=== PATIENT | female | born 1985 | race Caucasian/White ===

== ENCOUNTER 2016-10-19 14:21 | Emergency (ER) | payer SELFPAY ==
[~2016-10-19 14:21] MED LIST: ACETAMINOPHEN; CIPRO; LORTAB
[2016-10-24 02:29] LABS: CHLAMYDIA TRACH Detected (Not Detected); N GONOR Detected (Not Detected)
== END 2016-10-19 15:40 | disposition home or self-care (01) ==
LOC: CED 14:21
PROVIDERS: Emergency Medicine
DX: N73.9 Female pelvic inflammatory disease, unspecified (principal); F17.200 Nicotine dependence, unspecified, uncomplicated; Z88.1 Allergy status to other antibiotic agents
CPT/HCPCS: 87491; 87591; 87808; 87905; 99284

== ENCOUNTER 2016-11-23 06:00 | Inpatient (IN) | payer OTHER ==
--- NOTE | ~2016-11-23 | DS ---
Unit #: [id number] #: [id number] Patient: BENJI WU [id number] [facility] [address] [place] [address] [id number] I MR#: [id number] NAME: BENJI WU ROOM: 81 Age: 31 Sex: F Admission Date: 11/23/2016 : 1985 Discharge Date: 11/25/2016 Attending Physician: Nikos Guan M.D. Primary Care Physician: Primary Care Physician No DISCHARGE SUMMARY REASON FOR ADMISSION The patient is a 31-year-old white female, admitted with a history of opioid dependence. HOSPITAL COURSE The patient was admitted to the [facility] unit and placed on routine detoxification protocol for opioids. Her stay in the hospital was a brief and uneventful one. By 11/25/2016, the patient's detox was complete. She requested discharge. It was so ordered. FINAL DIAGNOSES Opioid use disorder. DISPOSITION ON DISCHARGE The patient is discharge on no psychotropic or other medications. FOLLOWUP Followup will take place through the auspices of community mental health resources. PROGNOSIS Her prognosis is considered fair. Dictated by... Nikos Guan M.D. KIET/rubina TD: 11/25/2016 13:53 JOB #: [id number] DISCHARGE SUMMARY Page 1 of 1 X Nikos Guan MD X DISCHARGE SUMMARY
--- NOTE | ~2016-11-23 | PN ---
Unit #: [id number] #: [id number] Patient: BENJI WU [id number] [facility] [address] [place] [address] [id number] I MR#: [id number] NAME: BENJI WU ROOM: 81 Age: 31 Sex: F Admission Date: 11/23/2016 : 1985 Attending Physician: Nikos Guan M.D. Admitting Physician: Nikos Guan M.D. Primary Care Physician: Primary Care Physician Zahra PINO PROGRESS NOTES DATE 11/22/2016 DISCUSSION The patient complains of significant physical distress related to opioid withdrawal. Today, she request initiation of "methadone or Suboxone." It is explained to the patient that these medications are not part of our detoxification protocol but I have spoken with her at great length regarding the various p.r.n.'s which are available for any emerging symptoms of opioid withdrawal. Dictated by... Nikos Guan M.D. CB/monserrat TD: 11/24/2016 13:15 JOB #: [id number] ALVAREZ MCCONNELL NOTES Page 1 of 1 X Nikos Guan MD PROGRESS NOTE
--- NOTE | ~2016-11-23 | HP ---
Unit #: [id number] #: [id number] Patient: BENJI WU [id number] [place] [address] [id number] I MR#: [id number] NAME: BENJI WU ROOM: P181 Age: 31 Sex: F Admission Date: 11/23/2016 : 1985 Attending Physician: Nikos Guan M.D. Admitting Physician: Nikos Guan M.D. Primary Care Physician: Primary Care Physician No HISTORY AND PHYSICAL HISTORY OF PRESENT ILLNESS Benji is a 31 year old admitted to [facility] because of her illicit drug use which includes heroin. PAST MEDICAL HISTORY Long history of illicit drug use to include heroin. PAST SURGICAL HISTORY Nothing reported. ALLERGIES Cefaclor (hives). SOCIAL HISTORY Smokes 1 pack per day. Drinks alcohol rarely. Admits to a long history of opioid abuse to include heroin. FAMILY HISTORY Medically noncontributory. REVIEW OF SYSTEMS CONSTITUTIONAL: No fever or chills. HEENT: Denies any sore throat, ear pain or runny nose. CARDIOVASCULAR: Denies chest pain, irregular heart rhythm or palpitations. CHEST: Denies shortness of breath or cough. No hemoptysis. GASTROINTESTINAL: Denies nausea, vomiting, diarrhea or chronic constipation. ENDOCRINE: Denies history of increased thirst or urination. No recent significant weight loss or gain. GENITOURINARY: Denies dysuria, frequency, or hematuria. SKIN: Denies any rashes. HEMATOLOGIC: Denies history of increased bleeding or bruising. MUSCULOSKELETAL: Denies any hot, swollen joints. No generalized muscle pain. NEUROLOGIC: Denies problems with vision or speech. No frequent, severe headaches. No numbness, tingling or weakness in any extremities. Denies loss of bladder or bowel control. CURRENT MEDICATIONS Detox protocol. PHYSICAL EXAMINATION GENERAL: Alert, well-nourished, in no apparent distress. Unit #: [id number] #: [id number] Patient: BENJI WU VITAL SIGNS: Blood pressure 100/64, heart rate 80, respirations 16, temperature 98.6. WEIGHT: 90 pounds. HEIGHT: 5 feet 0 inches. SKIN: Warm and dry without rash or lesion. HEENT: Normocephalic. TMs not viewed. Oral and nasal passages clear. Conjunctivae clear. PERRLA. EOMs intact. NECK: Supple without lymphadenopathy or thyromegaly. HEART: Regular rate and rhythm without murmur. LUNGS: Clear. ABDOMEN: Soft, nontender. : Not done. EXTREMITIES: No evidence of cyanosis, clubbing or edema. Moves all without focal deficit. NEUROLOGICAL: Grossly within normal limits. Cranial Nerves: II: Visual barrett are intact. III, IV AND : Extraocular movements are intact. Pupils are equal, round and reactive to light. V: Facial sensation is grossly normal. VII: Facial movements and expression are normal. VIII: Auditory acuity grossly intact. IX, X: Uvula is midline. Phonation is normal. XI: Patient shrugs shoulders and turns head normally. XII: Tongue protrudes in the midline. Sensory and Motor Function: Sensory and motor sensation is grossly normal. Motor: moves all extremities well. Coordination: Gait is normal. Deep Tendon Reflexes: Intact. IMPRESSION Psychiatric admission. RECOMMENDATIONS PSYCHIATRIC: Per psychiatrist. MEDICAL: See no contraindications to participate in facility's activities. MEDICAL PROGNOSIS Good. MEDICAL CONDITION Stable. Dictated by... Jena Miller P.A.-C. for Aidan Tracey/monserrat TD: 11/23/2016 21:52 JOB #: [id number] Unit #: [id number] #: [id number] Patient: BENJI WU HISTORY AND PHYSICAL Page 1 of 1 X Jena Miller X HISTORY AND PHYSICAL
--- NOTE | ~2016-11-23 | PA ---
Unit #: [id number] #: [id number] Patient: BENJI WU [id number] [place] [address] [id number] I MR#: [id number] NAME: BENJI WU ROOM: P181 Age: 31 Sex: F Admission Date: 11/23/2016 : 1985 Date of Assessment: 11/23/2016 Attending Physician: Nikos Guan M.D. Admitting Physician: Nikos Guan M.D. Primary Care Physician: Primary Care Physician No PSYCHIATRIC ASSESSMENT IDENTIFYING INFORMATION The patient is a 31-year-old white female with a history of opioid dependence admitted for opioid detox. INFORMANT(S) Chart. Patient could not be aroused for interview. CHIEF COMPLAINT None given. HISTORY OF PRESENT ILLNESS The patient is a 31-year-old white female with a history of opioid dependence. The patient reports a history of intravenous use of heroin. She was denying suicidal ideation at the time of admission but states she is "tired of living this." She does have a history of legal charges in the past but is not presently facing any issues. She is homeless. When seen today, the patient cannot be aroused for evaluation. She has a history of previous treatment at [facility]. PAST PSYCHIATRIC HISTORY As above. FAMILY HISTORY Noncontributory. SOCIAL HISTORY As noted previously, the patient is currently homeless. She reports substance use as noted previously and is a smoker. MEDICAL HISTORY Noncontributory. MEDICATION HISTORY None. ALLERGIES Cefaclor. MENTAL STATUS EXAM At this time reveals the patient to be a thin, disheveled white female appearing somewhat older than her stated age. She is resting comfortably and cannot be aroused for interview. Unit #: [id number] #: [id number] Patient: BENJI WU ASSETS AND LIABILITIES Patient's assets to be assessed. Liabilities, lack of resources. ADMITTING DIAGNOSIS Opioid use disorder. PSYCHIATRIC PLAN/TREATMENT GOALS The patient remains hospitalized for safety and stabilization. Routine detoxification protocol for opioids has been initiated. The patient will participate in appropriate martinez and milieu activities. She will follow through the auspices of community mental health resources. ESTIMATED LENGTH OF STAY Three to five days. Dictated by... Nikos Guan M.D. KIET/monserrat TD: 11/23/2016 16:25 JOB #: [id number] PSYCHIATRIC ASSESSMENT Page 1 of 1 X Nikos Guan MD PSYCHIATRIC ASSESSMENT
[2016-11-24 11:50] LABS: BASOPHIL% 0.5 % (0-2.5); DIFF IND YES; EOSINOPHIL# 0.1 X10e3 (0-0.7); EOSINOPHIL% 2.6 % (0.0-7.0); HEMOGLOBIN 11.4 gm/dL (12.0-16.0); LYMPHOCYTE# 2.8 X10e3 (1.0-3.5); LYMPHOCYTE% 60.9 % (17.0-45.0); MEAN CELL VOLUME 82.9 FL (83-96); MEAN CORPUSCULAR HEMOGLOBIN 26.9 PG (28-34); MEAN CORPUSCULAR HGB CONC 32.5 g/dL (30-36); MONOCYTE# 0.3 X10e3 (0-1.0); MONOCYTE% 7.1 % (3.0-12.0); NEUTROPHIL# 1.3 X10e3 (1.5-7.1); NEUTROPHIL% 28.9 % (40-75); PLATELET COUNT 210 X10e3 (140-420); RED BLOOD COUNT 4.22 X10e (3.90-5.30); WHITE BLOOD COUNT 4.5 X10e3 (4.0-10.5)
[2016-11-24 12:22] LABS: ALBUMIN SERUM 3.3 g/dL (3.5-5.0); BILIRUBIN,TOTAL 0.5 mg/dL (0.2-2.0); BUN/CREATININE RATIO 18.33; CALCIUM SERUM 8.6 mg/dL (8.4-10.2); CREATININE SERUM 0.6 mg/dL (0.6-1.4); GLOM FILT RATE Estimated 119.8 mL/min (>60); POTASSIUM 3.6 mmol/L (3.5-5.1); PROTEIN TOTAL SERUM 6.4 g/dL (6.0-8.3)
[2016-11-24 13:00] LABS: PLATELET ESTIMATE NORMAL (NORMAL)
[2016-11-24 13:02] LABS: HYPOCHROMIA SL; ROULEAUX SLIGHT
[2016-11-24 13:03] LABS: REACTIVE LYMPHS PRESENT
[2016-11-29 10:26] LABS: HA AB IGM (HEPPAN) Nonreactive (()); HB CORE AB IGM (HEPPAN) Nonreactive (Nonreactive); HB S AG (HEPPAN) Nonreactive (Nonreactive); HEP C AB (HEPPAN) Reactive (Nonreactive)
== END 2016-11-25 12:34 | disposition home or self-care (01) | DRG 897 ==
LOC: P1E 08:56
PROVIDERS: Psychiatry & Neurology Psychiatry; Specialist
PROC: HZ2ZZZZ Detoxification Services for Substance Abuse Treatment (ICD-10-PCS; principal; 2016-11-23)
DX: F11.20 Opioid dependence, uncomplicated (principal); F17.210 Nicotine dependence, cigarettes, uncomplicated
CPT/HCPCS: 80053; 80074; 84703; 85025; 86592; 87522; 87806

== ENCOUNTER 2016-12-25 00:49 | Inpatient (IN) | payer OTHER ==
[~2016-12-25] VITALS: Ht 152.4 cm; Wt 45.0 kg
--- NOTE | ~2016-12-25 | CO ---
Unit #: [id number] #: [id number] Patient: BENJI WU [id number] [address] [place], [place] [address] [id number] MR#: [id number] NAME: BENJI WU ROOM: [facility] Age: 31 Sex: F Admission Date: 12/25/2016 : 1985 Attending Physician: Hay Pierre M.D. Consultation Date: 12/25/2016 CONSULTATION REPORT REASON FOR CONSULT Low ejection fraction. HISTORY OF PRESENT ILLNESS This is a 31-year-old female with a history of IV heroin abuse. The patient was admitted for complaints of fever, chills, and chest pain which worsened with deep breath, as well as a cough. In the emergency room, the patient was seen and evaluated. Blood cultures were drawn, and she received a fluid bolus and some Toradol, as well as Tylenol. The patient also had a CT of the chest performed which showed no evidence of PE but patchy areas of nodularity in both lungs favored to represent infectious or inflammatory change. These were most likely felt to be septic pulmonary emboli secondary to her history of IV drug use. The patient was started on IV antibiotics. The patient did have issues with hypotension with blood pressure into the 80s and had been started on pressors. Lactic acid was noted to be 0.7. Chem tox is positive for benzodiazepines. The patient did have a 2D echocardiogram performed which showed ejection fraction of 35% to 40%, could not rule out small aortic root abscess, mildly dilated aortic root, mild mitral regurgitation, moderate tricuspid regurgitation, no evidence of effusion, and RVSP of 40 mmHg. She was also found to have positive blood cultures. Initial EKG was performed which showed sinus tachycardia, rate of 141 beats per minute, QTc interval of 428 msec, and no acute ischemic change. Point of care troponin was negative. PAST MEDICAL HISTORY IV drug use and tobacco use. Otherwise, no significant medical history reported. PAST SURGICAL HISTORY 1. Tonsillectomy. 2. Tubal ligation. HOME MEDICATIONS No reported home medications. ALLERGIES Cephalosporins. SOCIAL HISTORY Positive for tobacco use of one pack per day. Denies alcohol. Reports Unit #: [id number] #: [id number] Patient: BRYCE,BENJI use of IV heroin. She lives with a friend. FAMILY HISTORY Coronary artery disease in her mother. REVIEW OF SYSTEMS Negative except for what was stated above in the History of Present Illness. PHYSICAL EXAMINATION VITAL SIGNS: Temperature 98.7, respiratory rate 16, pulse 94, and blood pressure 101/70. GENERAL: This is a female who is in no acute distress. HEENT: Head is atraumatic and normocephalic. Pupils are equal and round. Mucous membranes are moist. NECK: Trachea is midline. No lymphadenopathy or thyromegaly. Carotid upstrokes are normal. CARDIOVASCULAR: S1 and S2. No murmur, gallop, or rub. Regular rate and rhythm. LUNGS: Clear to auscultation. No rales, rhonchi, or wheezes. ABDOMEN: Soft, nontender, and nondistended. Bowel sounds are present. EXTREMITIES: No clubbing, cyanosis, or edema. Pulses are palpable. NEUROLOGIC: She is awake, alert, and oriented. She follows commands and moves all extremities equally. DIAGNOSTIC STUDIES LABORATORY: Point of care troponin was negative. Hemoglobin 11.1, hematocrit 33.8, and WBC 6.6. Potassium 3.7 and creatinine 0.7. D-dimer 851. Chem tox is positive for benzodiazepines. Urinalysis shows leukocyte esterase, 5-10 WBCs, and 4+ bacteria. Urine culture is currently pending. Blood cultures are growing Staphylococcus aureus. IMAGING: Chest x-ray shows nodular densities in the right left midlung not clearly seen on the previous study. CT angiogram of the chest shows no evidence for PE but patchy areas of nodularity in both lungs favored to represent infectious or inflammatory change. CARDIOLOGY: EKG shows sinus tachycardia, rate of 141 beats per minute, possible left atrial enlargement, QTc interval of 428 msec, and no acute ischemic change. IMPRESSION 1. Sepsis with hypotension requiring pressor support. 2. Staphylococcus aureus bacteremia. 3. Questionable pulmonary septic emboli. 4. Cardiomegaly most likely drug induced, ejection fraction of 35% to 40%. 5. Atypical chest pain. PLAN The patient's IV fluids will be increased to 100 mL/hour. She will be kept n.p.o. after midnight for possible WAYNE as the patient has already had an echo which showed an LVEF of 35% to 40% with mildly dilated aortic root, could not rule out small aortic root abscess. The patient will need diagnostic WAYNE. At this point, there is no evidence of fluid overload on exam. She will be continued on sepsis protocol with IV antibiotics and pressor support at this time to maintain mean arterial blood pressure greater than 60. The patient was advised on the importance of smoking Unit #: [id number] #: [id number] Patient: BENJI WU cessation, as well as cessation of IV drug use. Consider drug rehab at discharge. Dictated by... Baldemar ZarateRMabel for Aidan Urbina/am TD: 12/26/2016 15:55 JOB #: [id number] CONSULTATION REPORT Page 1 of 1 X Monica Lewis PAID SEARCH MANAGER X CONSULTATION REPORT
--- NOTE | ~2016-12-25 | CR72 ---
[facility] A Service of [facility] RADIOLOGY TEXT RESULTS PATIENT: BENJI WU LOCATION: [address] : 83 UNIT #: [id number] AGE: [address]: Hay Pierre MD SEX: F ORDER DR: [id number] [facility] [address] [facility]. [place], [place] [address] [id number] MR#: [id number] Acc #: [id number] NAME: BENJI WU : 1985 SEX: F STUDY DATE/TIME: 12/25/2016 2:08 UNIT: [facility] ROOM: [facility] STUDY DESCRIPTION: CR Chest Single View Portable Attending Physician: Hay Pierre M.D. Referring Physician: Primary Care Physician No Ordering Physician: Andrea Edwards D.O. Primary Care Physician: Primary Care Physician No MEDICAL IMAGING REPORT This report is preliminary unless electronic signature is present EXAM Portable chest INDICATIONS Chest pain and fever tonight. PROCEDURE Frontal view chest. COMPARISON: 05/13/2006 FINDINGS Heart size is normal. There is an approximately 10 mm nodular density in the right mid lung. Possible 1.3 cm nodular density in the left mid lung. No dense consolidation, pleural fluid or pneumothorax. IMPRESSION 1. Nodular densities in the right left midlung not clearly seen on the previous study. It is possible these could represent nipple shadows. There is no new dense consolidation. 2. Cannot exclude that these represent new true nodules. Dictated by... Fer Benjamin M.D. THIS IS AN ELECTRONICALLY VERIFIED REPORT Fer Benjamin M.D. at 12/25/2016 9:50 PM EED/andrés TD: 12/25/2016 13:49 JOB #: [id number] [facility] A Service of [facility] RADIOLOGY TEXT RESULTS PATIENT: BENJI WU LOCATION: [address] : 83 UNIT #: [id number] AGE: [address]: Hay Pierre MD SEX: F ORDER DR: MEDICAL IMAGING REPORT Page 1 of 1 COPY
--- NOTE | ~2016-12-25 | CT16 ---
[facility] A Service [facility] RADIOLOGY TEXT RESULTS PATIENT: BENJI WU LOCATION: [facility] : 83 UNIT #: [id number] AGE: [address]: Hay Pierre MD SEX: F ORDER DR: [id number] [id number] [place], [place] [address] [id number] I MR#: [id number] Acc #: [id number] NAME: BENJI WU : 1985 SEX: F STUDY DATE/TIME: 12/25/2016 5:18 UNIT: [facility] ROOM: [facility] STUDY DESCRIPTION: CT Angio Chest for PE Attending Physician: Hay Pierre M.D. Referring Physician: No Primary Care Physician Ordering Physician: Andrea Edwards D.O. Primary Care Physician: No Primary Care Physician MEDICAL IMAGING REPORT This report is preliminary unless electronic signature is present EXAM CTA chest, PE protocol. INDICATIONS Intermittent upper back and chest pain with inspiration and shortness of air for the past 4 days. PROCEDURE Contrast-enhanced CTA of the chest, attention on opacification of the pulmonary arteries. Coronal 3-D MIP and sagittal reformatted images are reconstructed and submitted. This CT exam was performed with one or more of the following radiation dose reduction techniques: automatic exposure control, adjustment of mA and/or kV according to patient size, and iterative reconstruction. COMPARISON None. FINDINGS No evidence for pulmonary embolus or acute aortic injury. Mildly prominent bilateral hilar lymph nodes. There are scattered patchy areas of nodularity in both lungs. An index region in the lateral right middle lobe measures 1.7 cm. No aggressive appearing bone lesion. IMPRESSION 1. No evidence for pulmonary embolus. 2. Patchy areas of nodularity in both lungs favored to represent infectious or inflammatory change. Consider followup after appropriate therapy to document improvement. Dictated by... Fer Benjamin M.D. [facility] A Service [facility] RADIOLOGY TEXT RESULTS PATIENT: BENJI WU LOCATION: [facility] : 83 UNIT #: [id number] AGE: [address]: Hay Pierre MD SEX: F ORDER DR: THIS IS AN ELECTRONICALLY VERIFIED REPORT Fer Benjamin M.D. at 12/25/2016 9:52 PM SABRINAD/roya TD: 12/25/2016 13:54 JOB #: [id number] MEDICAL IMAGING REPORT Page 1 of 1 COPY
--- NOTE | ~2016-12-25 | CO ---
Unit #: [id number] #: [id number] Patient: BENJI WU [id number] [address] [place], [place] [address] [id number] I MR#: [id number] NAME: BENJI WU ROOM: 554 Age: 31 Sex: F Admission Date: 12/25/2016 : 1985 Attending Physician: Hay Pierre M.D. Primary Care Physician: Primary Care Physician No Consultation Date: 12/26/2016 CONSULTATION REPORT REQUESTING PHYSICIAN Dr. Zamudio. REASON FOR CONSULTATION Bacteremia and sepsis. HISTORY OF PRESENT ILLNESS This a 31-year-old, white female with a history of IV drug use, who presented with chest pain during deep breaths, associated with fever and chills. Blood cultures are growing Staphylococcus aureus. CT scan of the chest did not show any pulmonary emboli. There were multiple small inflammatory nodules suspicious for septic emboli. He had no symptoms of UTI, but urine culture is growing gram-negative kim. She is currently on vancomycin and Levaquin. ID was consulted for further evaluation. A WAYNE done today shows no vegetation or any evidence of endocarditis. She had hypotension on admission, but currently she is off pressors and is being moved to the floor. ID was consulted for recommendation of antimicrobial therapy. PAST MEDICAL HISTORY Current history of IV drug use, previous history of unspecified kidney disorder. PAST SURGICAL HISTORY She also has a history of tonsillectomy, tubal ligation, and tubes in the ear. HOME MEDICATIONS None in the hospital. She is on vancomycin, levofloxacin, IV fluids, Protonix, Lovenox, and methadone. ALLERGIES Ceclor, which causes hives. SOCIAL HISTORY She lives with a friend. She smokes cigarettes daily. No history of alcohol use, but uses marijuana and IV heroin, almost on a daily basis. FAMILY HISTORY Not significant at this time. SYSTEMIC REVIEW Noted. Unit #: [id number] #: [id number] Patient: BENJI WU PHYSICAL EXAMINATION GENERAL: Reveals a young white female, who is somewhat malnourished, looks chronically ill. She is awake and alert however, and does not appear to be in any distress at this time. VITAL SIGNS: Current temperature is 98.9, heart rate 85, respirations 16, blood pressure 108/66. She had a T-max of 103 on admission and lowest blood pressure was 87/45 on admission. She looks pale. NECK: Supple. There is no JVD or edema. Central line in place. LUNGS: Clear to percussion and auscultation. HEART: Normal. There are no murmurs. ABDOMEN: Soft and nontender without organomegaly or ascites. Bowel sounds normal. NEUROLOGIC: Nonfocal. DIAGNOSTIC STUDIES LABORATORY RESULTS: Blood cultures from yesterday are growing Staph aureus. Susceptibilities are pending. Urine culture, gram-negative rods. ID is pending. UA shows mild pyuria, but the patient does not have any symptoms of UTI. BMP is unremarkable. White count is 3.7, hemoglobin 8.9, and platelets 152. CT of the chest shows no pulmonary embolism. There are patchy areas of nodularity in both lungs. Urine drug screen was positive for benzodiazepine. Lactic acid 0.7. Urinalysis, 1+ leukocyte esterase, 5 to 10 wbc's, 4+ bacteria. IMPRESSION IV drug use with Staphylococcus aureus bacteremia, possible septic emboli to the lungs, although WAYNE is negative. She probably does not have UTI and gram-negative kim in the urine may just be a contaminant since the patient is completely asymptomatic. RECOMMENDATIONS We will continue vancomycin and Levaquin at this time. We will repeat blood cultures to document clearance of bacteremia. We will also check HIV antibody test. Further recommendation will follow. Dictated by... Aidan Nathan/rubina TD: 12/27/2016 06:24 JOB #: [id number] CONSULTATION REPORT Page 1 of 1 X Rudi Finnegan MD CONSULTATION REPORT
--- NOTE | ~2016-12-25 | HP ---
Unit #: [id number] #: [id number] Patient: BENJI WU [id number] [address] [place], [place] [address] [id number] I MR#: [id number] NAME: BENJI WU ROOM: [facility] Age: 31 Sex: F Admission Date: 12/25/2016 : 1985 Attending Physician: Hay Pierre M.D. Primary Care Physician: No Primary Care Physician HISTORY AND PHYSICAL CHIEF COMPLAINT Chest pain with deep breathing. HISTORY OF PRESENT ILLNESS Ms. Benji Wu is a 31-year-old white female with a long history of IV heroin abuse, who continues to use heroin daily. She presented to the emergency room with pain when she would take deep breaths. She had associated symptoms of subjective fevers, chills, and night sweats. She had some nausea and she vomited once yesterday. She was evaluated in the emergency room with a CT angiogram of the chest which was negative for pulmonary emboli but did suggest some multifocal infectious inflammatory issue. Considering her history and presentation, it was felt she most likely had septic pulmonary emboli and was started on IV antibiotics with Levaquin and vancomycin as she has an allergy to cephalosporins. She initially had normal blood pressure when she presented at approximately 1 a.m.; however, her blood pressures began dropping down into the 80s at 5 a.m. and she was then diagnosed with septic shock. She has had a central line placed. She has not started on Levophed yet at the time of this dictation, but it will be started shortly if blood pressures continue to warrant it. PAST MEDICAL HISTORY She has a remote history nine years ago of kidney disease, likely a self-limited glomerulonephritis based on her description. She has ongoing issues with heroin abuse and tobacco abuse but no other chronic medical issues per her report. PAST SURGICAL HISTORY She has had tubes in her ears. She has had tonsillectomy. She has had a tubal ligation. HOME MEDICATIONS None. ALLERGIES Cefaclor causes hives. SOCIAL HISTORY She lives with a friend. She smokes one pack per day. She denies alcohol. Denies marijuana. Denies cocaine. Denies methamphetamine. Denies any use of anxiety medications. She does use IV heroin daily. FAMILY HISTORY Mother has unknown heart disease. Father was healthy. Unit #: [id number] #: [id number] Patient: BENJI WU REVIEW OF SYSTEMS A full 10-point review of systems was done with positives as noted above in the HPI. She also endorses some feeling of skipped heart beats and racing heart beat and some feeling of shortness of breath. Otherwise, a full 10-point review of systems is negative with the exceptions noted above in the HPI. PHYSICAL EXAMINATION VITAL SIGNS: Temperature was 103 degrees Fahrenheit, pulse on presentation was 149 and is decreased to 87, respiratory rate has ranged from 12-18, most recent blood pressure is 89/58. GENERAL: The patient is alert and oriented in no acute distress. CARDIOVASCULAR: Regular rate and rhythm. No murmurs. LUNGS: Clear to auscultation bilaterally. No rales, rhonchi, or wheezes. ABDOMEN: Soft, nontender, nondistended. No mass or hepatosplenomegaly. EXTREMITIES: No clubbing, cyanosis, or edema. SKIN: No rashes or lesions. Skin is warm and dry throughout. MUSCULOSKELETAL: No joint effusions. No muscle or joint tenderness. HEAD: Normocephalic and atraumatic. EYES: Sclerae are white. Conjunctivae are well infused. MOUTH: Mucous membranes are moist. There are no oropharyngeal lesions. NECK: Supple. No cervical lymphadenopathy. Trachea is midline. NEUROLOGIC: The patient has 5/5 strength in all four extremities. No focal neurologic deficits. DIAGNOSTIC STUDIES LABORATORY: D-dimer is 851. Urinalysis shows 5-10 white blood cells, 4+ bacteria, 1+ leukocyte esterase, and negative nitrites. Lactic acid is 0.7. Complete metabolic profile is notable only for sodium of 130. CBC is notable only for hemoglobin of 11.1 with a MCV of 82. Troponin is negative. IMAGING: CT angiogram of the chest and portable chest x-rays were reviewed. Please see reports for details. ASSESSMENT AND PLAN 1. Septic shock: Will continue high-flow IV fluids with normal saline, Levophed as needed, and antibiotics with Levaquin and vancomycin pending blood cultures and urine cultures. Will consult Dr. Abhay Harris with critical care pulmonology while the patient is in the intensive care unit. 2. Likely pulmonary septic emboli: Will continue the antibiotics. Will check an echocardiogram to rule out endocarditis. 3. Heroin abuse: Will instruct the patient on scheduled methadone and will give p.r.n. Ativan and Lortab. 4. Possible urinary tract infection: Continue antibiotics. 5. Microcytic anemia: Will monitor daily for stability. 6. Deep venous thrombosis prophylaxis: Will place on Lovenox. 7. Gastrointestinal prophylaxis: Will place on proton pump inhibitor. 8. Patient is a full code. Dictated by Hay Pierre M.D. Unit #: [id number] #: [id number] Patient: BENJI WU ANIRUDH/derek TD: 12/25/2016 10:33 JOB #: [id number] HISTORY AND PHYSICAL Page 1 of 1 X Hay Pierre MD X HISTORY AND PHYSICAL
--- NOTE | ~2016-12-25 | XA166 ---
[facility] A Service of [facility] RADIOLOGY TEXT RESULTS PATIENT: BENJI WU LOCATION: [facility] 55-01 : 83 UNIT #: [id number] AGE: [address]: Hay Pierre MD SEX: F ORDER DR: [id number] [place] [facility]. [place], [place] [address] [id number] I MR#: [id number] Acc #: [id number] NAME: BENJI WU : 1985 SEX: F STUDY DATE/TIME: 12/27/2016 14:57 UNIT: C5 ROOM: [facility] STUDY DESCRIPTION: XA PICC Line Placement WO Port Attending Physician: Hay Pierre M.D. Referring Physician: Primary Care Physician No Ordering Physician: Hay Pierre M.D. Primary Care Physician: No Primary Care Physician MEDICAL IMAGING REPORT This report is preliminary unless electronic signature is present EXAM Right side PICC line placement HISTORY Talisha is a 31-year-old lady review was recently admitted with septic emboli. She requires IV access for long-term antibiotics. FINDINGS Review of this patient's chart reveals that she admits to being a daily heroin user. I did express my concern about placing the PICC line in a patient with a history of chronic heroin abuse. She did ask about any protocol to minimize the risk of the patient's using this PICC line for access for illicit drugs. When concerns were communicated to Keila, the data warehouse administrator and the nurse Lisa Hendrix who was told that no protocol for prevention of the use of this catheter for illicit drugs could be instituted unless the patient was witnessed with illicit drugs. PRE-PROCEDURE The procedure was explained to the patient and/or patient safety representative including risks, benefits, potential complications and potential for alternative forms of treatment. Informed consent was obtained, and prior to initiating the procedure a formal timeout procedure was performed. PROCEDURE Using full standard sterile barrier technique, including caps, gowns, gloves, masks, as well as sterile skin preparation and standard sterile draping, the right arm was prepped and draped in the usual fashion, and real-time sterile ultrasound guidance was used to localize an arm vein and to confirm vessel patency. A hard copy ultrasound image was recorded. After local anesthesia with 1% Xylocaine, the vein was punctured using real-time sterile ultrasound guidance, and an 0.018 guidewire was advanced STS. [facility] A Service of [facility] & [facility] RADIOLOGY TEXT RESULTS PATIENT: BENJI WU LOCATION: [facility] 554-01 : 83 UNIT #: [id number] AGE: [address]: Hay Pierre MD SEX: F ORDER DR: into the superior vena cava, using fluoroscopic guidance. A 5-Azerbaijani dual-lumen PICC was then measured and deployed with the tip positioned in the superior vena cava. The position of the line was documented with a radiographic image. The line was secured in place with an adhesive dressing and an antibiotic patch was applied. Total fluoro time was 0.1 minutes. AK was 1 mGy. IMPRESSION Successful placement of a 5-Azerbaijani dual-lumen Power PICC via the arm under ultrasound and fluoroscopic guidance. The tip of the PICC is in good position in the superior vena cava. Dictated by... Leonila Nails M.D. THIS IS AN ELECTRONICALLY VERIFIED REPORT Leonila Nails M.D. at 12/28/2016 5:50 PM AFF/alma rosa TD: 12/28/2016 11:23 JOB #: [id number] MEDICAL IMAGING REPORT Page 1 of 1 COPY
--- NOTE | ~2016-12-25 | CO ---
Unit #: [id number] #: [id number] Patient: BENJI WU [id number] [address] [place], [place] [address] [id number] I MR#: [id number] NAME: BENJI WU ROOM: [facility] Age: 31 Sex: F Admission Date: 12/25/2016 : 1985 Attending Physician: Hay Pierre M.D. Primary Care Physician: Primary Care Physician No CONSULTATION REPORT HISTORY OF PRESENT ILLNESS Ms. Wu is a 31-year-old female, who has a history of IV drug use with heroin, who presented to the emergency room with inspiratory chest pain. She has had fevers and chills for the last 4 days. She was seen in the emergency room. CT angiogram revealed multifocal infiltrates, several in the very periphery of the lung consistent with septic pulmonary emboli. She was initially had a reasonable blood pressure, but then dropped her pressure into the 80s and was started on sepsis protocol and moved to the ICU. Central line has been placed. PAST MEDICAL HISTORY Significant for history of kidney disease years ago possibly some glomerulonephritis, has ongoing issues of heroin abuse, tobacco use. PAST SURGICAL HISTORY Tubes in her ears, tonsillectomy, tubal ligation. HOME MEDICATIONS None. ALLERGIES Cephalosporins. SOCIAL HISTORY Lives with her friend. Smokes a pack a day. Denies alcohol. Last use heroin yesterday. Denies amphetamine use. FAMILY HISTORY Heart disease. REVIEW OF SYSTEMS Difficult to obtain, she is slow to respond. She states that she wants to go to sleep, she was up all night. PHYSICAL EXAMINATION GENERAL: White female, in no distress. VITAL SIGNS: Blood pressure is 83/51, pulse is 86, respiratory rate 17, afebrile. HEENT: Normocephalic and atraumatic. Pupils are equal, round, and reactive. Sclerae nonicteric. Nasal passages patent. Posterior pharynx clear. No thrush. Dentures in place. NECK: Supple. Trachea midline. No cervical or supraclavicular lymphadenopathy. LUNGS: Clear anteriorly and laterally. Unit #: [id number] #: [id number] Patient: BENJI WU CARDIAC: Regular rate and rhythm. Could not appreciate murmur, rub, or gallop. ABDOMEN: Nontender. Bowel sounds present. No hepatosplenomegaly. EXTREMITIES: Without clubbing, cyanosis, or edema. NEUROLOGIC: Awake, answers questions. Moves all extremities. SKIN: Warm and dry. PSYCHIATRIC: Affect calm. DIAGNOSTIC STUDIES IMAGING STUDIES: Chest CT scan as noted. LABORATORY RESULTS: Chemistries reviewed. Sodium 130, potassium 3.7, creatinine 0.7. Lactic acid 0.6. White blood cell count 6100, hematocrit 28.2, and platelet count normal. IMPRESSION 1. Septic shock. 2. Likely pulmonary emboli from infected tricuspid valve. 3. IV heroin use. 4. Tobacco abuse. 5. Anemia. PLAN Broad-spectrum antibiotics to cover gram positive and gram negatives. Cover MRSA and strep, etc. Monitor H and H. Note that HIV is negative. We will make further recommendations pending this. Dictated by... Rod Harris M.D. ELIZABETH/rubina TD: 12/26/2016 00:31 JOB #: [id number] CONSULTATION REPORT Page 1 of 1 X Rod Harris MD X CONSULTATION REPORT
--- NOTE | ~2016-12-25 | EKG ---
PATIENT: BENJI WU UNIT #: [id number] Ventricular Rate: 141 BPM Atrial Rate: 141 BPM P-R Interval: 138 ms QRS Duration: 74 ms Q-T Interval: 280 ms QTC Calculation(Bezet): 428 ms P [place]: 77 degrees Calculated R [place]: 76 degrees Calculated T [place]: 58 degrees Diagnosis Line: Sinus tachycardia Diagnosis Line: Possible Left atrial enlargement Diagnosis Line: Borderline ECG Diagnosis Line: No previous ECGs available Diagnosis Line: Confirmed by TOM MCKEE MD ([id number]) on Diagnosis Line: 12/26/2016 8:27:55 AM INTERPRETING MD: RYLEE JENNINGS
--- NOTE | ~2016-12-25 | DS ---
Unit #: [id number] #: [id number] Patient: BENJI WU [id number] [address] [address] [id number] I MR#: [id number] NAME: BENJI WU ROOM: 554 Age: 31 Sex: F Admission Date: 12/25/2016 : 1985 Discharge Date: 12/28/2016 Attending Physician: Hay Pierre M.D. DISCHARGE SUMMARY PRIMARY DIAGNOSES 1. Methicillin-resistant Staphylococcus aureus bacteremia, septic shock. 2. Septic pulmonary emboli, likely methicillin-resistant Staphylococcus aureus pneumonia. 3. IV drug abuse with heroin. 4. Microcytic anemia. 5. 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 6. Urinary tract infection with Escherichia coli. 7. Leukopenia, resolved. HOSPITAL COURSE The patient was admitted to the ICU with a central line and Levophed as well as high-flow IV fluids and broad-spectrum antibiotics. Infectious Disease was consulted as well as Dr. Ocampo with Cardiology and Dr. Abhay Harris with Pulmonology. The patient's septic shock improved and the patient was able to be transferred out of the ICU. Antibiotics were downgraded to vancomycin and Macrobid. Vancomycin for her MRSA bacteremia and pneumonia as well as Macrobid for her E coli urinary tract infection. The patient's repeat cultures were negative at 24 hours, although, it is notable that her vancomycin troughs were low and dosage was being escalated at the time of discharge. I have strongly advised the patient to plan discharge to [facility] for continued rehabilitation and IV antibiotics as she will be able to keep her PICC line and would be more likely to successfully complete her antibiotics and cleared her bacteremia and treat her pneumonia. Likewise, I felt that admission to [facility] would be the most likely to keep her clear from reusing heroin and she states she does want to get clean. Unfortunately, the patient refuses transfer to [facility] or transfer to [facility] or any other inpatient facility as she reports she needs to take care of her children. She instead likes to have her PICC line removed as I told her I cannot safely discharge her home with a PICC line. She will come in daily for the next 14 days for IV daptomycin. She also plans to follow up with [facility] that she previously and in the interim, she plans to buy Suboxone off the street to stay clean off heroin. I suggested other options for caring for her children while she attends [employer], but she was not still unwilling to consider going to [employer]. The patient is at high risk for readmission as she has a high risk for failing to achieve IV access at one of her 14 planned outpatient IV antibiotic appointments. If she fails to be able to get an outpatient IV stick for IV antibiotics, I would strongly recommend readmission to the hospital at that time for continued IV antibiotics and insistence upon transition to [facility] at that time for continued IV daptomycin. Unit #: [id number] #: [id number] Patient: BENJI WU DISCHARGE DISPOSITION Home. DISCHARGE STATUS Stable. DISCHARGE ACTIVITY Ad fabrice. DISCHARGE DIET Unrestricted. DISCHARGE FOLLOWUP Followup is with her plan for [facility] on Saturday; follow up with her PCP of her choice in 1 to 2 weeks; follow up with [facility] outpatient program for chemical dependency on Saturday, phone #[phone]. She was given this information. DISCHARGE MEDICATIONS Ferrous sulfate 325 mg p.o. once daily with food, daptomycin 300 mg IV daily for 14 days and Macrobid 100 mg p.o. b.i.d. for 2 days. Dictated by... Hay Pierre M.D. ANIRUDH/rubina TD: 12/31/2016 01:22 JOB #: [id number] DISCHARGE SUMMARY Page 1 of 1 X Hay Pierre MD X DISCHARGE SUMMARY
--- NOTE | ~2016-12-25 | CR72 ---
[facility] A Service of [facility] & [facility] RADIOLOGY TEXT RESULTS PATIENT: BENJI WU LOCATION: [place] [id number] : 83 UNIT #: [id number] AGE: [address]: Hay Pierre MD SEX: F ORDER DR: [id number] [facility] [address] [facility]. [place], [place] [address] [id number] I MR#: [id number] Acc #: [id number] NAME: BENJI WU : 1985 SEX: F STUDY DATE/TIME: 12/25/2016 8:22 UNIT: [facility] ROOM: [facility] STUDY DESCRIPTION: CR Chest Single View Portable Attending Physician: Hay Pierre M.D. Referring Physician: No Primary Care Physician Ordering Physician: Andrea Edwards D.O. Primary Care Physician: No Primary Care Physician MEDICAL IMAGING REPORT This report is preliminary unless electronic signature is present EXAM Portable chest. HISTORY Central line placement, chest pain. Patient with multifocal infiltrates noted on recent chest CT. FINDINGS Portable view of the chest demonstrates interval placement of a right neck approach central line terminating lower SVC. Continued patchy interstitial and alveolar infiltrates. No effusions. Heart and mediastinum unremarkable. No pneumothorax. Dictated by... Lisa Verdin M.D. THIS IS AN ELECTRONICALLY VERIFIED REPORT Lisa Verdin M.D. at 12/25/2016 3:53 PM BRIDGETTE/roya TD: 12/25/2016 14:33 JOB #: [id number] MEDICAL IMAGING REPORT Page 1 of 1 COPY
[2016-12-25 01:42] LABS: BASOPHIL% 0.2 % (0-2.5); EOSINOPHIL# 0.1 X10e3 (0-0.7); HEMATOCRIT 33.8 % (35.0-45.0); HEMOGLOBIN 11.1 gm/dL (12.0-16.0); LYMPHOCYTE# 0.9 X10e3 (1.0-3.5); LYMPHOCYTE% 14.3 % (17.0-45.0); MEAN CORPUSCULAR HGB CONC 32.9 g/dL (30-36); MEAN PLATELET VOLUME 7.3 FL (6.5-11.5); MONOCYTE# 0.4 X10e3 (0-1.0); NEUTROPHIL# 5.2 X10e3 (1.5-7.1); NEUTROPHIL% 78.5 % (40-75); PLATELET COUNT 214 X10e3 (140-420); RED BLOOD COUNT 4.12 X10e (3.90-5.30); RED CELL DISTRIBUTION WIDTH 15.3 % (11.0-15.5); WHITE BLOOD COUNT 6.6 X10e3 (4.0-10.5)
[2016-12-25 01:50] LABS: POC - CKMB 1.5 ng/mL (0.0-7.9); POC - TROPONIN <0.05 ng/mL (<=0.05)
[2016-12-25 02:11] LABS: DIFF IND NO
[2016-12-25 02:13] LABS: ALBUMIN SERUM 3.5 g/dL (3.5-5.0); BILIRUBIN, DIRECT 0.1 mg/dL (0.0-0.2); BILIRUBIN,INDIRECT 0.8 mg/dL (0.0-0.9); BILIRUBIN,TOTAL 0.9 mg/dL (0.2-2.0); BUN/CREATININE RATIO 14.28; CALCIUM SERUM 8.4 mg/dL (8.4-10.2); CREATININE SERUM 0.7 mg/dL (0.6-1.4); GLOM FILT RATE Estimated 113.8 mL/min (>60); POTASSIUM 3.7 mmol/L (3.5-5.1); PROTEIN TOTAL SERUM 7.1 g/dL (6.0-8.3)
[2016-12-25 02:26] LABS: URINE SOURCE CLEAN CATCH
[2016-12-25 02:37] LABS: URINE APPEARANCE CLOUDY; URINE BILIRUBIN NEG (NEG); URINE BLOOD TRACE (NEG); URINE COLOR DK YELLOW; URINE GLUCOSE NEG (NEG); URINE KETONE NEG (NEG); URINE LEUKOCYTE ESTERASE 1+ (NEG); URINE NITRATE NEG (NEG); URINE PH 6.5 (5-8); URINE PROTEIN NEG (NEG); URINE SPECIFIC GRAVITY 1.018 (1.003-1.035)
[2016-12-25 02:39] LABS: CULTURE INDICATED? YES; URBCS1 AUWI 0-2 /[HPF] (0-2); URINE BACTERIA AUWI 4+ (NEGATIVE); URINE SQUAMOUS EPITHELIAL CELL OCC /[HPF]
[2016-12-25] MEDS ORDERED: NO MEDICATIONS (11:17)
[2016-12-25 11:36] LABS: BASOPHIL% 0.5 % (0-2.5); EOSINOPHIL# 0.2 X10e3 (0-0.7); EOSINOPHIL% 3.9 % (0.0-7.0); HEMATOCRIT 28.2 % (35.0-45.0); HEMOGLOBIN 9.4 gm/dL (12.0-16.0); LYMPHOCYTE% 16.7 % (17.0-45.0); MEAN CELL VOLUME 83.6 FL (83-96); MEAN CORPUSCULAR HEMOGLOBIN 27.7 PG (28-34); MEAN CORPUSCULAR HGB CONC 33.2 g/dL (30-36); MEAN PLATELET VOLUME 7.3 FL (6.5-11.5); MONOCYTE# 0.5 X10e3 (0-1.0); MONOCYTE% 7.5 % (3.0-12.0); NEUTROPHIL# 4.4 X10e3 (1.5-7.1); NEUTROPHIL% 71.4 % (40-75); PLATELET COUNT 167 X10e3 (140-420); RED BLOOD COUNT 3.37 X10e (3.90-5.30); RED CELL DISTRIBUTION WIDTH 15.5 % (11.0-15.5); WHITE BLOOD COUNT 6.1 X10e3 (4.0-10.5)
[2016-12-25 12:02] LABS: DIFF IND NO
[2016-12-25 20:32] LABS: BARBITURATES NEG (NEG); BENZODIAZEPINES POS (NEG); COCAINE NEG (NEG); MARIJUANA NEG (NEG); OPIATES NEG (NEG); TRICYCLIC ANTIDEPRESSANTS NEG (NEG); U METHADONE NEG (NEG)
[2016-12-26 05:44] LABS: BASOPHIL% 0.4 % (0-2.5); EOSINOPHIL# 0.3 X10e3 (0-0.7); EOSINOPHIL% 7.1 % (0.0-7.0); HEMATOCRIT 27.2 % (35.0-45.0); HEMOGLOBIN 8.9 gm/dL (12.0-16.0); LYMPHOCYTE# 1.2 X10e3 (1.0-3.5); LYMPHOCYTE% 31.8 % (17.0-45.0); MEAN CELL VOLUME 82.9 FL (83-96); MEAN CORPUSCULAR HEMOGLOBIN 27.1 PG (28-34); MEAN CORPUSCULAR HGB CONC 32.7 g/dL (30-36); MONOCYTE# 0.3 X10e3 (0-1.0); MONOCYTE% 8.5 % (3.0-12.0); NEUTROPHIL% 52.2 % (40-75); PLATELET COUNT 152 X10e3 (140-420); RED BLOOD COUNT 3.28 X10e (3.90-5.30); WHITE BLOOD COUNT 3.7 X10e3 (4.0-10.5)
[2016-12-26 05:51] LABS: BUN/CREATININE RATIO 17.5; CALCIUM SERUM 7.5 mg/dL (8.4-10.2); CREATININE SERUM 0.4 mg/dL (0.6-1.4); DIFF IND NO; GLOM FILT RATE Estimated 136.9 mL/min (>60); POTASSIUM 3.6 mmol/L (3.5-5.1)
[2016-12-27 06:00] LABS: BASOPHIL% 0.6 % (0-2.5); EOSINOPHIL# 0.3 X10e3 (0-0.7); EOSINOPHIL% 6.5 % (0.0-7.0); HEMATOCRIT 28.6 % (35.0-45.0); HEMOGLOBIN 9.5 gm/dL (12.0-16.0); LYMPHOCYTE# 1.9 X10e3 (1.0-3.5); LYMPHOCYTE% 47.5 % (17.0-45.0); MEAN CELL VOLUME 83.2 FL (83-96); MEAN CORPUSCULAR HEMOGLOBIN 27.5 PG (28-34); MEAN CORPUSCULAR HGB CONC 33.1 g/dL (30-36); MEAN PLATELET VOLUME 7.8 FL (6.5-11.5); MONOCYTE# 0.3 X10e3 (0-1.0); MONOCYTE% 8.5 % (3.0-12.0); NEUTROPHIL# 1.5 X10e3 (1.5-7.1); NEUTROPHIL% 36.9 % (40-75); PLATELET COUNT 218 X10e3 (140-420); RED BLOOD COUNT 3.43 X10e (3.90-5.30); RED CELL DISTRIBUTION WIDTH 15.9 % (11.0-15.5)
[2016-12-27 06:08] LABS: DIFF IND NO
[2016-12-27 06:42] LABS: CALCIUM SERUM 7.8 mg/dL (8.4-10.2); CARBON DIOXIDE 28 mmol/L (22-31); CHLORIDE 108 mmol/L (100-111); CREATININE SERUM 0.4 mg/dL (0.6-1.4); GLOM FILT RATE Estimated 136.9 mL/min (>60); GLUCOSE FASTING 77 mg/dL (70-110); POTASSIUM 3.6 mmol/L (3.5-5.1); SODIUM 139 mmol/L (135-145)
[2016-12-27 06:43] LABS: BLOOD UREA NITROGEN <5 mg/dL (9-23)
[2016-12-28 06:50] LABS: HEMATOCRIT 27.7 % (35.0-45.0); HEMOGLOBIN 8.9 gm/dL (12.0-16.0); MEAN CELL VOLUME 84.1 FL (83-96); MEAN CORPUSCULAR HEMOGLOBIN 26.8 PG (28-34); MEAN CORPUSCULAR HGB CONC 31.9 g/dL (30-36); MEAN PLATELET VOLUME 7.7 FL (6.5-11.5); RED BLOOD COUNT 3.3 X10e (3.90-5.30); RED CELL DISTRIBUTION WIDTH 16.4 % (11.0-15.5); WHITE BLOOD COUNT 4.2 X10e3 (4.0-10.5)
[2016-12-28 07:40] LABS: BUN/CREATININE RATIO 12.5; CALCIUM SERUM 7.6 mg/dL (8.4-10.2); CREATININE SERUM 0.4 mg/dL (0.6-1.4); GLOM FILT RATE Estimated 136.9 mL/min (>60); POTASSIUM 3.9 mmol/L (3.5-5.1)
[2016-12-28] MEDS ORDERED: MACROBID100 M1 PO (11:19)
[2016-12-28] MEDS ORDERED: CUBICIN IV (11:20)
[2016-12-28] MEDS ORDERED: FERRO-TIME325 MG PO (11:20)
== END 2016-12-28 17:39 | disposition home or self-care (01) | DRG 871 ==
LOC: CED 00:49 → CEDOF 08:15 → C5B 08:15 → CICCU3 08:15 → CEDOF 08:30 → CICCU3 08:30 → CED 08:30 → CICCU3 10:11 → CEDOF 10:11 → CICCU3 10:11 → C5B 12-26 20:35
PROVIDERS: Emergency Medicine; Internal Medicine
PROC: B32TYZZ Computerized Tomography (CT Scan) of Left Pulmonary Artery using Other Contrast (ICD-10-PCS; principal; 2016-12-25)
PROC: B32SYZZ Computerized Tomography (CT Scan) of Right Pulmonary Artery using Other Contrast (ICD-10-PCS; 2016-12-25)
PROC: 05HM33Z Insertion of Infusion Device into Right Internal Jugular Vein, Percutaneous Approach (ICD-10-PCS; 2016-12-25)
PROC: B543ZZA Ultrasonography of Right Jugular Veins, Guidance (ICD-10-PCS; 2016-12-25)
PROC: B24BYZZ Ultrasonography of Heart with Aorta using Other Contrast (ICD-10-PCS; 2016-12-25)
PROC: B24BZZ4 Ultrasonography of Heart with Aorta, Transesophageal (ICD-10-PCS; 2016-12-26)
PROC: 02HV33Z Insertion of Infusion Device into Superior Vena Cava, Percutaneous Approach (ICD-10-PCS; 2016-12-28)
PROC: B518YZA Fluoroscopy of Superior Vena Cava using Other Contrast, Guidance (ICD-10-PCS; 2016-12-28)
PROC: B548ZZA Ultrasonography of Superior Vena Cava, Guidance (ICD-10-PCS; 2016-12-28)
DX: A41.02 Sepsis due to Methicillin resistant Staphylococcus aureus (principal); R65.21 Severe sepsis with septic shock; I26.90 Septic pulmonary embolism without acute cor pulmonale; J15.212 Pneumonia due to Methicillin resistant Staphylococcus aureus; I42.7 Cardiomyopathy due to drug and external agent; F11.10 Opioid abuse, uncomplicated; N39.0 Urinary tract infection, site not specified; D50.9 Iron deficiency anemia, unspecified; F17.210 Nicotine dependence, cigarettes, uncomplicated; Z98.51 Tubal ligation status; I51.7 Cardiomegaly; R07.89 Other chest pain; D64.9 Anemia, unspecified; D72.819 Decreased white blood cell count, unspecified; B96.20 Unspecified Escherichia coli [E. coli] as the cause of diseases classified elsewhere
CPT/HCPCS: 36415; 71010; 71275; 76937; 77001; 80048; 80076; 80202; 80307; 81003; 82553; 82947; 83605; 84484; 84703; 85025; 85027; 85379; 87040; 87077; 87086; 87088; 87186; 87806; 93005; 93306; 93312; 96361; 96365; 96366; 96375; 99285; C1751; C9113; J1650; J1885; J1956; J2250; J3010; J3370; Q9967

== ENCOUNTER → 2016-12-29 | Outpatient (CLI) | payer OTHER ==
[~2016-12-29] MED LIST changes: +CUBICIN IV; +FERRO-TIME325 MG PO; +MACROBID100 M1 PO; +NO MEDICATIONS
== END | disposition home or self-care (01) ==
LOC: CSSDAY 07:06
DX: A41.02 Sepsis due to Methicillin resistant Staphylococcus aureus (principal); Z79.2 Long term (current) use of antibiotics
CPT/HCPCS: 96365; J0878

== ENCOUNTER → 2016-12-30 | Outpatient (CLI) | payer OTHER | END | disposition home or self-care (01) | LOC: CSSDAY 07:04 | DX: A41.02 Sepsis due to Methicillin resistant Staphylococcus aureus (principal); Z79.2 Long term (current) use of antibiotics | CPT/HCPCS: 96365; J0878 ==

== ENCOUNTER → 2016-12-31 | Outpatient (CLI) | payer OTHER | END | disposition home or self-care (01) | LOC: CSSDAY 09:00 | DX: A41.02 Sepsis due to Methicillin resistant Staphylococcus aureus (principal); Z79.2 Long term (current) use of antibiotics | CPT/HCPCS: 96365; J0878 ==

== ENCOUNTER 2017-01-10 00:55 | Inpatient (IN) | payer OTHER ==
[~2017-01-10] VITALS: Ht 152.4 cm; Wt 45.4 kg
--- NOTE | ~2017-01-10 | CO ---
Unit #: [id number] #: [id number] Patient: BENJI WU [id number] [facility]. [place], [place] [address] [id number] I MR#: [id number] NAME: BENJI WU ROOM: 218 Age: 31 Sex: F Admission Date: 01/10/2017 : 1985 Attending Physician: Tona Grimaldo M.D. Primary Care Physician: Katelin Jane M.D. Consultation Date: 01/15/2017 CONSULTATION REPORT REASON FOR CONSULTATION Followup. DISCUSSION Ms. Amanda Wu is a 31-year-old white female, seen in room 218 bed 1 on 01/15/2017 at [facility]. The patient is reporting that she is still having problem with the anxiety, but mood is better. The patient reports withdrawal symptoms are better. The patient is tolerating medication fairly well. Denied any thoughts of harming self or others or any psychotic symptom, but still somewhat anxious and nervous. The patient's vital signs; temperature 98.7, pulse 111, respirations 16, blood pressure 122/70, oxygen saturation 96%. MENTAL STATUS EXAMINATION General appearance; the patient dressed in hospital attire, lying comfortably in bed, seemed somewhat anxious, nervous. Attention span and concentration, fair. Speech, regular rate and coherent. Oriented in time, place, and person. Mood and affect, sad, dysphoric, anxious. Reported lot of anxiety. Thought process, goal directed. The patient denied any thoughts of harming self or others or any psychotic symptom. Recent and remote memory, fair. Language, intact. Fund of knowledge, fair. Insight and judgment, fair to slightly impaired. DIAGNOSES Psychiatric: Opioid use disorder, severe, F11.20; major depressive disorder, recurrent, severe, F33.2; anxiety disorder, not otherwise specified, F40.01. ASSESSMENT AND PLAN 1. Supportive psychotherapy and psychoeducation provided to the patient. 2. Educated about benefits and side effects of medication and course and prognosis of illness. If needed, consider further adjustment of medication. The patient was advised to follow up in outpatient [facility] program and given crisis line #[phone]. Dictated by... Aidan WoodsC/rubina TD: 01/16/2017 18:49 JOB #: [id number] Unit #: [id number] #: [id number] Patient: BENJI WU CONSULTATION REPORT Page 1 of 1 X Osman Field MD CONSULTATION REPORT
--- NOTE | ~2017-01-10 | DS ---
Unit #: [id number] #: [id number] Patient: BENJI WU [id number] [address] [address] [id number] I MR#: [id number] NAME: BENJI WU ROOM: 218 Age: 31 Sex: F Admission Date: 01/10/2017 : 1985 Discharge Date: 01/14/2017 Attending Physician: Tona Grimaldo M.D. Primary Care Physician: Katelin Jane M.D. DISCHARGE SUMMARY PRINCIPAL DIAGNOSES 1. Right middle lobe pulmonary abscess. Presumed MRSA. 2. Recent history of MRSA bacteremia, secondary to IV drug abuse. Blood cultures here have been negative. 3. Anxiety. 4. Musculoskeletal back pain. 5. Pleuritic chest pain. 6. Transaminitis. 7. Normocytic anemia. 8. Moderate protein malnutrition. 9. Tobaccoism. CONSULTANTS Dr. Harris, pulmonology. Dr. Prather, infectious disease. DIAGNOSTIC DATA IMAGING: Chest x-ray on 01/10/2017 with a preexisting nodule in the periphery of the right mid lung that has undergone central cavitation. No new pulmonary nodules. CT angiogram of the chest on 01/10/2017, with no evidence of PE. There is improvement in the patchy interstitial and alveolar opacities noted. Peripheral consolidation of the right middle lobe has undergone central cavitation. MRI thoracic spine with and without contrast on 01/11/2017 with no evidence of epidural abscess, diskitis or osteomyelitis. CLINICAL HISTORY/HOSPITAL COURSE Ms. Wu is a 31-year-old female who presents to the emergency department with complaints of chest pain. The patient has a recent history of MRSA bacteremia with associated septic pulmonary emboli. She was not compliant with IV antibiotics secondary to being incarcerated. The patient upon presentation had normal blood work. The patient was placed on IV vancomycin and both infectious disease and pulmonology were consulted. Review of [facility] from prior admission did not reveal any endocarditis. The patient was maintained on IV vancomycin and she has remained stable. Plan is for her to complete a two-week course of IV vancomycin at [facility], to which she is now agreeable. She will be discharged when a bed is available. DISCHARGE CONDITION Unit #: [id number] #: [id number] Patient: BENJI WU Stable. DISPOSITION Discharge to [facility]. DISCHARGE MEDICATIONS 1. Zoloft 50 mg at bedtime. 2. Trazodone 75 mg at bedtime. 3. Vancomycin 750 mg IV q.6 h. To stop after doses on 01/27/2017. DIET The patient is instructed to follow a regular diet. DISCHARGE INSTRUCTIONS 1. She is to refrain from any further IV drug use. 2. Refrain from any tobacco use. FOLLOWUP The patient will follow up with Dr. Harris in approximately three weeks. She needs a repeat CT scan of the chest without contrast at that time. Dictated by... Tona Grimaldo M.D. TI/jonathan TD: 01/14/2017 16:06 JOB #: [id number] DISCHARGE SUMMARY Page 1 of 1 X Tona Grimaldo MD X DISCHARGE SUMMARY
--- NOTE | ~2017-01-10 | MR175 ---
[facility] A Service of [facility] RADIOLOGY TEXT RESULTS PATIENT: BENJI WU LOCATION: C2A 218-01 : 83 UNIT #: [id number] AGE: [address]: Tona Grimaldo MD SEX: F ORDER DR: [id number] [facility] [address] [facility]. [place], [place] [address] [id number] MR#: [id number] Acc #: [id number] NAME: BENJI WU : 1985 SEX: F STUDY DATE/TIME: 01/11/2017 11:45 UNIT: C5B ROOM: 562 STUDY DESCRIPTION: MR Thoracic WWo Contrast Attending Physician: Tona Grimaldo M.D. Ordering Physician: Tona Grimaldo M.D. Primary Care Physician: Katelin Jane M.D. MRI CENTER REPORT This report is preliminary unless electronic signature is present. EXAM MRI of the thoracic spine with and without HISTORY History of IV drug abuse with a recent incompletely treated MRSA infection with septic emboli. Patient has back pain, mid chest pain, radiating to back, [id number] back pain for a month, worsening in the past 2 weeks. Please evaluate for infection to the thoracic spine. COMMENT MRI of the thoracic spine was performed prior to and following intravenous administration of 9 mL of MultiHance. There is no previous imaging of the thoracic spine. FINDINGS Sagittal alignment is normal. Bone marrow signal intensity is normal. The intervertebral discs are normal in signal intensity. The thoracic cord is normal in size and signal intensity. Following contrast administration there is no pathologic intracanalicular enhancement. There is no evidence for epidural abscess. There is nothing to suggest discitis or osteomyelitis. There is no focal disc extrusion, canal stenosis, or foraminal compromise suspected. IMPRESSION 1. No evidence for epidural abscess, discitis, or osteomyelitis. 2. Essentially normal MRI of the thoracic spine with and without contrast for age group. STAT * RESULT Dictated by... Aicha Patel M.D. [facility] A Service of [facility] RADIOLOGY TEXT RESULTS PATIENT: BENJI WU LOCATION: [facility] 218-01 : 83 UNIT #: [id number] AGE: [address]: Tona Grimaldo MD SEX: F ORDER DR: THIS IS AN ELECTRONICALLY VERIFIED REPORT Aicha Patel M.D. at 01/11/2017 5:47 PM VISH/mason TD: 01/11/2017 13:31 JOB #: [id number] MRI CENTER REPORT Page 1 of 1 COPY
--- NOTE | ~2017-01-10 | EKG ---
PATIENT: BENJI WU UNIT #: [id number] Ventricular Rate: 81 BPM Atrial Rate: 81 BPM P-R Interval: 114 ms QRS Duration: 88 ms Q-T Interval: 390 ms QTC Calculation(Bezet): 453 ms P Montague: 66 degrees Calculated R Montague: 74 degrees Calculated T Montague: 72 degrees Diagnosis Line: Normal sinus rhythm Diagnosis Line: Normal ECG Diagnosis Line: Diagnosis Line: Confirmed by ORA MCCRAY MD ([id number]) on 01/12/2017 Diagnosis Line: 8:09:25 AM INTERPRETING MD: MAHENDRA JENNINGS
--- NOTE | ~2017-01-10 | CR63 ---
[facility] A Service of [facility] RADIOLOGY TEXT RESULTS PATIENT: BENJI WU LOCATION: [facility] 562-01 : 83 UNIT #: [id number] AGE: [address]: Shana Hitchcock MD SEX: F ORDER DR: [id number] [place] [id number] [facility]. [place], [place] [address] [id number] MR#: [id number] Acc #: [id number] NAME: BENJI WU : 1985 SEX: F STUDY DATE/TIME: 01/10/2017 3:25 UNIT: ALBAN ROOM: STUDY DESCRIPTION: CR Chest 2 View Attending Physician: Krsitofer Serrano M.D. Ordering Physician: Kristofer Serrano M.D. Primary Care Physician: Katelin Jane M.D. MEDICAL IMAGING REPORT This report is preliminary unless electronic signature is present EXAM AP portable chest DATE: 01/10/2017 HISTORY 31-year-old female with complaints of back pain, shortness of breath for one week. History of endocarditis. COMPARISON CT chest 12/25/2016. AP portable chest 12/25/2016. FINDINGS Thick-walled cavitary lesion in the periphery the right midlung measures 1.4 cm. It corresponds to a nodule seen in this location on previous examination which appears to have undergone cavitation in the interval. Another subtle nodular density in the central right upper lobe appears smaller than on the prior exam. Left lung appears clear. No pleural effusion or pneumothorax. IMPRESSION 1. Preexisting nodule in the periphery the right midlung appears to have undergone some central cavitation since the prior exam, and another right upper lobe nodule appears smaller today. 2. No new pulmonary nodules or acute chest findings are identified. Dictated by... Glenny Vann M.D. THIS IS AN ELECTRONICALLY VERIFIED REPORT Glenny Vann M.D. at 01/10/2017 9:49 PM [facility] A Service of [facility] RADIOLOGY TEXT RESULTS PATIENT: BENJI WU LOCATION: C5B 562-01 : 83 UNIT #: [id number] AGE: [address]: Shana Hitchcock MD SEX: F ORDER DR: JAX/valery TD: 01/10/2017 04:12 JOB #: [id number] MEDICAL IMAGING REPORT Page 1 of 1 COPY
--- NOTE | ~2017-01-10 | CO ---
Unit #: [id number] #: [id number] Patient: BENJI WU [id number] [facility] [address]. [place], [place] [address] [id number] I MR#: [id number] NAME: BENJI WU ROOM: 218 Age: 31 Sex: F Admission Date: 01/10/2017 : 1985 Attending Physician: Tona Grimaldo M.D. Primary Care Physician: Katelin Jane M.D. Consultation Date: 01/12/2017 CONSULTATION REPORT REASON FOR CONSULTATION Opioid abuse, IV drug abuse, depression, and anxiety. HISTORY OF PRESENT ILLNESS Ms. Benji Hwang is a 31-year-old white female, seen in room 218, bed 1, at [facility] on 01/12/2017. The patient reported having depression, anxiety, withdrawals from opioids. The patient reports that she has been diagnosed with endocarditis, having trouble sleeping, anxiety, and depression. The patient also reported hot and cold sweats, restlessness of her legs, severe anxiety, and depression, but denied any suicidal or homicidal ideation. Denied any psychotic symptom. PAST PSYCHIATRIC HISTORY Remarkable for [facility]. Diagnosed with opioid use disorder. No history of any suicide attempt. MEDICAL HISTORY Remarkable for remote history of kidney disease, history of cardiac problems, diagnosed with MRSA bacteremia, septic shock, and septic pulmonary emboli in 12/2016. The patient has a cavitary lesion on the right middle lobe and IV drug use. MEDICATION HISTORY The patient is on iron and Macrobid. ALLERGIES To Cefaclor. FAMILY HISTORY AND SOCIAL HISTORY The patient reports that she has a good support system. History of substance abuse as mentioned above, addiction to opioids. REVIEW OF SYSTEMS Complete review of systems is unremarkable except as mentioned above. VITAL SIGNS The patient's vital signs; temperature 98.5, heart rate 97, respiratory rate 16, blood pressure 108/73, oxygen saturation 97%. MENTAL STATUS EXAMINATION General appearance; the patient dressed casually, thin built, lying comfortably in bed. Seemed somewhat anxious, nervous, restless, sad, depressed, and anxious. Attention span and concentration, fair. Speech, Unit #: [id number] #: [id number] Patient: BENJI WU regular rate and somewhat pressured. Oriented in time, place, and person. Mood and affect, sad and dysphoric. Thought process, coherent. Thought content, the patient denied any suicidal or homicidal ideation, but sad and depressed, but denied any hallucination. Recent and remote memory, poor. Language, intact. Fund of knowledge, fair. Insight and judgment, fair to slightly impaired. DIAGNOSES Psychiatric: Opioid use disorder, severe, F11.20; major depressive disorder, recurrent, severe, F33.2; and anxiety disorder, not otherwise specified, F40.01. ASSESSMENT AND PLAN 1. Supportive psychotherapy and psychoeducation provided to the patient. 2. Educated about benefits and side effects of medication and course and prognosis of illness. 3. Advised Zoloft for depression; Neurontin, Vistaril, and doxepin for withdrawal symptom; and Requip for restless legs syndrome. We will continue to follow. If needed, consider further adjustment of medication. Please feel free to call if any questions, telephone #[phone]. Dictated by... Aidan Woods/rubina TD: 01/13/2017 19:31 JOB #: [id number] CONSULTATION REPORT Page 1 of 1 X Osman Field MD X CONSULTATION REPORT
--- NOTE | ~2017-01-10 | CT16 ---
[facility] A Service of [facility] RADIOLOGY TEXT RESULTS PATIENT: BENJI WU LOCATION: [facility] [address] : 83 UNIT #: [id number] AGE: [address]: Shana Hitchcock MD SEX: F ORDER DR: [id number] [place] [id number] [facility]. [place], [place] [address] [id number] E MR#: [id number] Acc #: [id number] NAME: BENJI WU : 1985 SEX: F STUDY DATE/TIME: 01/10/2017 6:15 UNIT: ALBAN ROOM: STUDY DESCRIPTION: CT Angio Chest for PE Attending Physician: Ricky Amanda M.D. Ordering Physician: Kristofer Serrano M.D. Primary Care Physician: Katelin Jane M.D. MEDICAL IMAGING REPORT This report is preliminary unless electronic signature is present EXAM CT chest PE protocol HISTORY Mid-chest pain radiating to back for 2 weeks, cough, shortness of air. COMPARISON CT chest PE protocol 12/25/2016. TECHNIQUE Axial images were performed through the chest following IV contrast. 3D coronal and sagittal reconstructed images reviewed at a workstation. This CT exam was performed with one or more of the following radiation dose reduction techniques: Automatic exposure control, adjustment of mA and/or kV according to patient size, and iterative reconstruction. FINDINGS No evidence of pulmonary embolus. Heart size within normal limits. Aorta free dissection or aneurysm. The intervals central cavitation of a peripheral parenchymal opacity right middle lobe measuring about 1.8 cm. The central cavitation measures about 7 mm. This is most likely infectious or inflammatory in nature. Overall improvement in the patient's interstitial prominence with decreasing prominence of the peripheral and patchy alveolar opacities. Remains a small amount of peripheral subpleural nodularity. Background parenchyma appears abnormal suggesting emphysematous change. Trachea and bronchi are unremarkable. Patient is hyperinflated. This could also be seen with reactive airway disease. The upper abdomen unremarkable. IMPRESSION [facility] A Service of [facility] RADIOLOGY TEXT RESULTS PATIENT: BENJI WU LOCATION: C5 562-01 : 83 UNIT #: [id number] AGE: [address]: Shana Hitchcock MD SEX: F ORDER DR: 1. No evidence of pulmonary embolus. 2. The overall interval improvement in patchy interstitial and alveolar opacities as noted on patient's study on 12/25/2016. The area of peripheral consolidation of the right middle lobe has undergone central cavitation. The findings most likely reflect infectious etiology with other inflammatory process considered less likely. This appears superimposed on background hyperinflation which may indicate emphysema or reactive airway disease. No new areas of consolidation are identified. Dictated by... Lisa Verdin M.D. THIS IS AN ELECTRONICALLY VERIFIED REPORT Lisa Verdin M.D. at 01/10/2017 4:00 PM Sena TD: 01/10/2017 08:04 JOB #: [id number] MEDICAL IMAGING REPORT Page 1 of 1 COPY
--- NOTE | ~2017-01-10 | CO ---
Unit #: [id number] #: [id number] Patient: BENJI WU [id number] [facility] [address] [facility]. [place], [place] [address] [id number] I MR#: [id number] NAME: BENJI WU ROOM: 218 Age: 31 Sex: F Admission Date: 01/10/2017 : 1985 Attending Physician: Tona Grimaldo M.D. Primary Care Physician: Katelin Jane M.D. Consultation Date: 01/13/2017 CONSULTATION REPORT REASON FOR CONSULTATION Followup. DISCUSSION Ms. Benji Hwang is a 31-year-old white female, seen in room 218, bed 1, on 01/13/2017 at [facility]. The patient reports that she is feeling better, but still having anxiety and mood lability, but denied any problem with sleep. The patient reports a history of opioid abuse, having withdrawals, anxious, nervous. The patient denied any suicidal or homicidal ideation. Denied any psychotic symptom. VITAL SIGNS Temperature 98.6, heart rate 87, respiratory rate 16, blood pressure 87/55, and oxygen saturation 90%. REVIEW OF SYSTEMS Complete review of systems is unremarkable except as mentioned above. MENTAL STATUS EXAMINATION General appearance; the patient dressed casually, thin built, anxious, nervous, dressed in hospital attire. Attention span and concentration, fair. Speech, regular rate and somewhat pressured. Oriented in time, place, and person. Mood and affect were sad and dysphoric. Thought process, coherent. Thought content, the patient denied any suicidal or homicidal ideation. Denied any psychotic symptom, but anxious. Recent and remote memory, fair. Language, intact. Fund of knowledge, fair. Insight and judgment, fair. DIAGNOSES Psychiatric: Opioid use disorder, severe, F11.20; major depressive disorder, recurrent, severe, F33.2; and anxiety disorder, not otherwise specified, F40.01. ASSESSMENT AND PLAN 1. Supportive psychotherapy and psychoeducation provided to the patient. 2. Educated about benefits and side effects of medication and course and prognosis of illness. 3. Advised to continue with current combination of medication and we will make further adjustment of medication if needed. Please feel free to call if any questions, telephone #[phone]. Dictated by... Osman Field M.D. Unit #: [id number] #: [id number] Patient: BENJI WU LIZETT/rubina TD: 01/13/2017 18:00 JOB #: [id number] CONSULTATION REPORT Page 1 of 1 X Osman Field MD X CONSULTATION REPORT
--- NOTE | ~2017-01-10 | CO ---
Unit #: [id number] #: [id number] Patient: BENJI WU [id number] [address] [place], [place] [address] [id number] I MR#: [id number] NAME: BENJI WU ROOM: 218 Age: 31 Sex: F Admission Date: 01/10/2017 : 1985 Attending Physician: Tona Grimaldo M.D. Primary Care Physician: Katelin Jane M.D. CONSULTATION REPORT Ms. Wu is a 31-year-old female who I last saw in December. She was admitted with methicillin resistant Staph aureus bacteremia with septic shock and septic pulmonary emboli. 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 coli. She was discharged home to receive daptomycin IV for 14 days as an outpatient under the care of infectious disease. When she got home, she was arrested by police and was kept in detention. She was released on home incarceration and her mother brought her here to resume treatment. She has rivas some mid thoracic and back pain radiating to both sides. She has had no definite fevers, chills, no cough, no purulent sputum, no hemoptysis. She says she has not been using any IV drugs since she left the hospital. PAST MEDICAL HISTORY Significant for the above mentioned problems. She has a remote history of kidney disease. SURGERY 1. Myringotomy tubes. 2. Tonsillectomy. 3. Tubal ligation. ALLERGIES Cefaclor. HOME MEDICATIONS Iron, daptomycin, Macrobid per her discharge summary which she has not gotten. FAMILY HISTORY Mother has some sort of heart disease. SOCIAL HISTORY Lives with mother. Currently on home incarceration. Just got out of detention yesterday. History of IV drug abuse. Denies any since her admission last month. Continues to smoke. Denies alcohol. REVIEW OF SYSTEMS Ten point system otherwise negative although she has lost 30 pounds over the last two to three months. PHYSICAL EXAMINATION VITAL SIGNS: Blood pressure is 112/63, pulse 103, respiratory rate 18, afebrile. Unit #: [id number] #: [id number] Patient: BENJI WU HEENT: Normocephalic, atraumatic. Pupils equal, round, reactive. Sclerae nonicteric. Nasal passages patent. Posterior pharynx clear. Mucous membranes moist. NECK: Supple. Trachea midline. No cervical or supraclavicular lymphadenopathy. LUNGS: Clear to auscultation and percussion. CARDIAC: Regular rate and rhythm. Unable to appreciate murmur, rub or gallop. ABDOMEN: Nontender. Bowel sounds present. No hepatosplenomegaly. EXTREMITIES: Without clubbing, cyanosis or edema. Room air sat 99% to 100%. DIAGNOSTIC STUDIES IMAGING: Chest CT scan reviewed. Bilateral ground glass infiltrates have improved except for one area in the right middle lobe that has undergone central cavitation. MRI of thoracic spine showed no evidence of diskitis or bony destruction, abscess, etc. LABORATORY: White blood cell count was 6800, hematocrit was 38, now 29.9. Baseline on the was 27.7. IMPRESSION 1. Septic pulmonary emboli, resolving, with one cavitary lesion peripherally in right middle lobe. 2. MRSA bacteremia. 3. IV drug abuse. 4. Elevated LFTs. 5. Microcytic anemia. PLAN Antibiotics per ID to cover MRSA. She is scheduled for [facility]. I think this is natural progression of septic pulmonary emboli. Will need followup CT scan in four weeks unless situation changes. Cavitary lesion should resolve with antibiotics. She is also scheduled for drug rehab. Dictated by... Rod Harris M.D. ELIZABETH/gerald TD: 01/13/2017 15:01 JOB #: [id number] Unit #: [id number] #: [id number] Patient: BENJI WU CONSULTATION REPORT Page 1 of 1 X Rod Harris MD X CONSULTATION REPORT
--- NOTE | ~2017-01-10 | CO ---
Unit #: [id number] #: [id number] Patient: BENJI WU [id number] [facility] [address]. [place], [place] [address] [id number] MR#: [id number] NAME: BENJI WU ROOM: 218 Age: 31 Sex: F Admission Date: 01/10/2017 : 1985 Attending Physician: Tona Grimaldo M.D. Primary Care Physician: Katelin Jane M.D. Consultation Date: 01/14/2017 CONSULTATION REPORT DISCUSSION Ms. Benji Hwang is a 31-year-old female, seen in room 218 bed 1 on 01/14/2017 at [facility]. The patient reports medication is helping her, dressed casually in hospital attire, lying comfortably in bed. The patient denied any suicidal or homicidal ideation. Denied any psychotic symptom. The patient denied any side effects from medication. Reports medication is helping her. The patient's vital signs; temperature 99.1, pulse 90, respirations 18, blood pressure 117/66, and oxygen saturation 100%. The patient is currently receiving treatment for endocarditis. REVIEW OF SYSTEMS Complete review of systems unremarkable. MENTAL STATUS EXAMINATION General appearance, the patient dressed casually in hospital attire. Attention span and concentration, fair. Speech, regular rate and coherent. Oriented in time, place, and person. Mood and affect, sad and dysphoric. Speech, monotone. Thought process, circumstantial. The patient denied any thoughts of harming self or others or any psychotic symptom. Recent and remote memory, poor. Insight and judgment, poor. DIAGNOSES 1. Opioid use disorder, severe, F11.20. 2. Major depressive disorder, recurrent, severe, F33.2. 3. Anxiety disorder, not otherwise specified, F40.01. ASSESSMENT/PLAN 1. Supportive psychotherapy and psychoeducation provided to the patient. 2. Educated about benefits and side effects of medication and course and prognosis of illness. 3. Continue with current medication. If needed, consider further adjustment of medication. Please feel free to call if any question telephone #[phone]. The patient was advised to follow up in [facility] program upon discharge and given crisis line #[phone]. Dictated by... Aidan Woods/rubina TD: 01/15/2017 07:55 JOB #: [id number] Unit #: [id number] #: [id number] Patient: BENJI WU CONSULTATION REPORT Page 1 of 1 X Osman Field MD X CONSULTATION REPORT
--- NOTE | ~2017-01-10 | HP ---
Unit #: [id number] #: [id number] Patient: BENJI WU [id number] [facility]. [place], [place] [address] [id number] MR#: [id number] NAME: BENJI WU ROOM: 562 Age: 31 Sex: F Admission Date: 01/10/2017 : 1985 Attending Physician: Shana Hitchcock M.D. Primary Care Physician: Katelin Jane M.D. HISTORY AND PHYSICAL CHIEF COMPLAINT Endocarditis, out of meds. HISTORY OF PRESENT ILLNESS The patient is a 31-year-old female with past medical history of IV drug use, septic pulmonary emboli, MRSA bacteremia, drug-induced cardiomyopathy who presented to the emergency department for evaluation of the above. Of note, the patient was hospitalized at [facility] December 25 through December 28, 2016 for MRSA bacteremia, septic shock, septic pulmonary emboli. She was discharged home with a plan for her to receive IV daptomycin for an additional 14 days. The patient states that she went to short stay two days. She was subsequently incarcerated. She has not received any additional antibiotics. She got out of [facility] yesterday. She states that she has had persistent chest pain since discharge. The pain radiates to the back. It is worse with inspiration. She reports fever to 102 as well as chills. She has also had nausea but no vomiting. She also reports loose stool. She has had urinary frequency. In the emergency department, initial temperature was 97.8, pulse 19, respirations 16, blood pressure 125/80, oxygen saturation was 100% on room air. A CT of the chest, PE protocol, was done and negative for PE; however, overall interval improvement in the patchy interstitial alveolar opacities was noted. An area of consolidation in the right middle lobe has undergone central cavitation concerning for infectious process. White blood cell count is 6.8. Initial lactic acid 1.6. She was given daptomycin in the emergency department as well as 2 L of normal saline. She is being admitted to [facility] for evaluation and further treatment. PAST MEDICAL HISTORY 1. Admission to [facility] December 25 through December 28, 2016 for MRSA bacteremia, septic shock, septic pulmonary emboli. She was discharged home with a plan to receive daptomycin for 14 days. She did see cardiology during that admission. 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 2. Remote history of kidney disease. PAST SURGICAL HISTORY 1. Myringotomy tubes. 2. Tonsillectomy. 3. Tubal ligation. Unit #: [id number] #: [id number] Patient: BENJI WU SOCIAL HISTORY The patient lives with her mother. She is currently on home incarceration, just got out of [facility] yesterday. She has a history of IV drug use but denies use for over a month. She denies other illicit drug use. She continues to smoke. She denies alcohol use. FAMILY HISTORY Notable for her mother having an unknown heart issue. ALLERGIES Cefaclor. MEDICATIONS Home medications per the discharge summary from December 28, 2016 include: 1. Iron 325 mg daily. 2. Daptomycin 300 mg IV daily for an additional 14 days. 3. Macrobid 100 mg b.i.d. for two days. Home medications will need to be reviewed and verified. REVIEW OF SYSTEMS A complete review of systems is negative except as indicated in the HPI. The patient states that she has lost about 30 pounds over the past two to three months. DIAGNOSTIC STUDIES LABORATORY: Urinalysis shows 1+ bacteria. Comprehensive metabolic panel notable for AST and ALT of 47 and 55 respectively. Alkaline phosphatase is 95. Amylase and lipase are normal. Lactic acid is 1.6. Complete blood count is essentially normal. IMAGING: CT of the chest, PE protocol, shows no PE. Overall, interval improvement in patchy interstitial and alveolar opacities. There is an area of central cavitation in the right middle lobe concerning for infectious process. Chest x-ray shows central cavitation of right mid lung. CARDIOVASCULAR: EKG shows normal sinus rhythm with rate of 81 beats per minute. PHYSICAL EXAMINATION VITAL SIGNS: Temperature is 97.8, pulse 99, respirations 16, blood pressure 125/80, oxygen saturation 100% on room air. GENERAL: The patient is a female who is awake and alert in no acute distress. HEENT: The head is atraumatic. Mucous membranes are moist. NECK: Supple. Trachea is midline. CARDIOVASCULAR: Regular rate and rhythm. LUNGS: Clear to auscultation bilaterally with no increased work of breathing. ABDOMEN: Soft, nontender with bowel sounds present in all four quadrants. EXTREMITIES: Nontender with no pedal edema. NEUROLOGIC: The patient is awake and alert. She follows commands. PSYCHIATRIC: Mood and affect are normal. The patient is cooperative. SKIN: Skin of examined areas is warm and dry. ASSESSMENT Unit #: [id number] #: [id number] Patient: BENJI WU The patient is a 31-year-old female with: 1. Cavitary lesion of the right middle lobe. 2. History of methicillin-resistant Staphylococcus aureus bacteremia with incomplete treatment. The patient only received 2/14 days of daptomycin. 3. History of septic pulmonary emboli. 4. IV drug use. The patient states that her last use was more than a month ago. 5. Drug-induced cardiomyopathy with an ejection fraction of 40% (per discharge summary December 28, 2016). 6. Transaminitis. 7. Tobacco abuse. PLAN 1. Admit to intermediate level. 2. Normal saline at 125 mL/hr. 3. Regular diet. 4. Blood cultures x2. 5. Daptomycin IV with pharmacy to dose pending Dr. Finnegan's recommendations. 6. Monitor blood pressure closely. 7. P.r.n. Toradol. 8. P.r.n. Zofran. 9. Sepsis protocol with repeat lactic acid. 10. Consult Dr. Finnegan regarding cavitary lesion right middle lobe. 11. product development manager and social work consult regarding IV drug use. 12. Repeat labs in the morning. 13. Sequential compression devices for deep venous thrombosis prophylaxis. 14. Additional workup and consultants based on above. Dictated by Aidan Mcdermott/derek TD: 01/10/2017 11:42 JOB #: [id number] HISTORY AND PHYSICAL Page 1 of 1 X Shana Hitchcock MD HISTORY AND PHYSICAL
[2017-01-10 03:39] LABS: BASOPHIL% 0.7 % (0-2.5); EOSINOPHIL# 0.1 X10e3 (0-0.7); EOSINOPHIL% 1.4 % (0.0-7.0); HEMATOCRIT 38.7 % (35.0-45.0); LYMPHOCYTE# 2.1 X10e3 (1.0-3.5); LYMPHOCYTE% 30.3 % (17.0-45.0); MEAN CELL VOLUME 83.6 FL (83-96); MEAN CORPUSCULAR HEMOGLOBIN 28.1 PG (28-34); MEAN CORPUSCULAR HGB CONC 33.7 g/dL (30-36); MEAN PLATELET VOLUME 7.1 FL (6.5-11.5); MONOCYTE# 0.5 X10e3 (0-1.0); MONOCYTE% 7.2 % (3.0-12.0); NEUTROPHIL# 4.1 X10e3 (1.5-7.1); NEUTROPHIL% 60.4 % (40-75); PLATELET COUNT 357 X10e3 (140-420); RED BLOOD COUNT 4.64 X10e (3.90-5.30); RED CELL DISTRIBUTION WIDTH 17.1 % (11.0-15.5); WHITE BLOOD COUNT 6.8 X10e3 (4.0-10.5)
[2017-01-10 03:41] LABS: DIFF IND NO
[2017-01-10 03:51] LABS: URINE SOURCE CLEAN CATCH
[2017-01-10 04:00] LABS: URINE APPEARANCE SL CLOUDY; URINE BILIRUBIN NEG (NEG); URINE BLOOD NEG (NEG); URINE COLOR YELLOW; URINE GLUCOSE NORM (NORM); URINE KETONE NEG (NEG); URINE LEUKOCYTE ESTERASE NEG (NEG); URINE NITRATE NEG (NEG); URINE PROTEIN NEG (NEG); URINE SPECIFIC GRAVITY 1.015 (1.003-1.035); URINE UROBILINOGEN NORM (NORM)
[2017-01-10 04:08] LABS: ALBUMIN SERUM 4.4 g/dL (3.5-5.0); BILIRUBIN, DIRECT 0.1 mg/dL (0.0-0.2); BILIRUBIN,INDIRECT 0.4 mg/dL (0.0-0.9); BILIRUBIN,TOTAL 0.5 mg/dL (0.2-2.0); CALCIUM SERUM 9.8 mg/dL (8.4-10.2); CREATININE SERUM 0.4 mg/dL (0.6-1.4); GLOM FILT RATE Estimated 136.9 mL/min (>60); POTASSIUM 4.1 mmol/L (3.5-5.1); PROTEIN TOTAL SERUM 8.4 g/dL (6.0-8.3)
[2017-01-10 04:08] LABS: CULTURE INDICATED? YES; URINE BACTERIA AUWI 1+ (NEGATIVE); URINE SQUAMOUS EPITHELIAL CELL FEW /[HPF]
[2017-01-11 05:06] LABS: HEMATOCRIT 29.9 % (35.0-45.0); MEAN CELL VOLUME 85.4 FL (83-96); MEAN CORPUSCULAR HEMOGLOBIN 28.5 PG (28-34); MEAN CORPUSCULAR HGB CONC 33.4 g/dL (30-36); MEAN PLATELET VOLUME 6.8 FL (6.5-11.5); RED BLOOD COUNT 3.5 X10e (3.90-5.30); RED CELL DISTRIBUTION WIDTH 16.9 % (11.0-15.5); WHITE BLOOD COUNT 4.7 X10e3 (4.0-10.5)
[2017-01-11 05:50] LABS: ALBUMIN SERUM 2.8 g/dL (3.5-5.0); BILIRUBIN,TOTAL 0.5 mg/dL (0.2-2.0); BUN/CREATININE RATIO 28.33; CALCIUM SERUM 8.2 mg/dL (8.4-10.2); CREATININE SERUM 0.6 mg/dL (0.6-1.4); GLOM FILT RATE Estimated 119.8 mL/min (>60); POTASSIUM 4.3 mmol/L (3.5-5.1); PROTEIN TOTAL SERUM 5.4 g/dL (6.0-8.3)
[2017-01-11 11:18] LABS: AMPHETAMINE NEG (NEG); BARBITURATES NEG (NEG); BENZODIAZEPINES NEG (NEG); COCAINE NEG (NEG); MARIJUANA NEG (NEG); OPIATES NEG (NEG); TRICYCLIC ANTIDEPRESSANTS NEG (NEG); U METHADONE NEG (NEG)
[2017-01-12 05:26] LABS: HEMATOCRIT 30.9 % (35.0-45.0); HEMOGLOBIN 10.2 gm/dL (12.0-16.0); MEAN CELL VOLUME 85.7 FL (83-96); MEAN CORPUSCULAR HEMOGLOBIN 28.4 PG (28-34); MEAN CORPUSCULAR HGB CONC 33.1 g/dL (30-36); MEAN PLATELET VOLUME 7.4 FL (6.5-11.5); RED BLOOD COUNT 3.61 X10e (3.90-5.30); RED CELL DISTRIBUTION WIDTH 17.6 % (11.0-15.5); WHITE BLOOD COUNT 4.8 X10e3 (4.0-10.5)
[2017-01-12 06:25] LABS: BILIRUBIN,TOTAL 0.3 mg/dL (0.2-2.0); CALCIUM SERUM 8.4 mg/dL (8.4-10.2); CREATININE SERUM 0.5 mg/dL (0.6-1.4); GLOM FILT RATE Estimated 127.2 mL/min (>60); PROTEIN TOTAL SERUM 5.8 g/dL (6.0-8.3)
== END 2017-01-15 17:20 | DRG 178 ==
LOC: CED 00:55 → CEDOF 08:45 → C2A 08:45 → CEDOF 09:09 → CED 09:09 → C5B 11:01 → CEDOF 11:01 → C5B 01-11 06:46 → C2A 01-11 14:58
PROVIDERS: Emergency Medicine; Family Medicine; Internal Medicine
DX: J85.2 Abscess of lung without pneumonia (principal); E44.0 Moderate protein-calorie malnutrition; F33.2 Major depressive disorder, recurrent severe without psychotic features; I42.8 Other cardiomyopathies; F41.9 Anxiety disorder, unspecified; D64.9 Anemia, unspecified; R74.0 Nonspecific elevation of levels of transaminase and lactic acid dehydrogenase [LDH]; M54.9 Dorsalgia, unspecified; B95.62 Methicillin resistant Staphylococcus aureus infection as the cause of diseases classified elsewhere; Z88.1 Allergy status to other antibiotic agents; Z86.14 Personal history of Methicillin resistant Staphylococcus aureus infection; F17.210 Nicotine dependence, cigarettes, uncomplicated
CPT/HCPCS: 36415; 71020; 71275; 72157; 80048; 80053; 80076; 80202; 80307; 81003; 82150; 83605; 83690; 84703; 85025; 85027; 87040; 87070; 87086; 87205; 93005; 96360; 96361; 99285; A9577; J0878; J1885; J2405; J3370; Q9967